=== PATIENT | male | born 1940 | race Caucasian/White ===

== ENCOUNTER → 2022-09-26 14:58 | Outpatient (REF) | payer MEDICARE, SELFPAY ==
--- NOTE | 2022-09-26 15:03 | CA_ITS ---
Transthoracic Echocardiogram Patient (Last, First, Middle): Deni Mcgee J Gender: Male Date of : 1940 Age: 81 Procedure Date: 09/26/2022 Procedure Type: Transthoracic Echocardiogram Location: [facility] Height: 172.72 cm Weight: 77.11 kg BSA: 1.91 m2 Heart Rate: bpm BP: 150 / 90 mmHg Credit Reporting Clerk: TO Referring MD: Gaetano Anderson MD Residential Nurse: Adalberto Willard MD Symptoms: ATRIAL FIBRILLATION Study Quality: Fair ECG Rhythm: Atrial Fibrillation Conclusions: - 1. Low normal LV ejection fraction 45-50% 2. Severe biatrial enlargement 3. Mild aortic and mitral regurgitation 4. 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 Upper limits of normal RV systolic pressure 6. No pericardial effusion Findings Left Ventricle Normal left ventricular cavity size. There is normal left ventricular wall thickness. The left ventricular systolic function is mildly decreased. The visually estimated ejection fraction is between 45-50%. Diastolic function is indeterminate on the basis of available data. Right Ventricle Normal right ventricular cavity size. There is normal right ventricular systolic function. Atria Severe biatrial enlargement. There is no evidence of interatrial shunt. Aortic Valve Normal aortic valve structure and function. There is no aortic valve stenosis. There is mild aortic valve regurgitation. Mitral Valve There is mild anterior and posterior mitral leaflet thickening. There is mild mitral valve regurgitation. There is no mitral valve stenosis. Pulmonic Valve The pulmonic valve is likely normal. There is trace to mild pulmonic valve regurgitation. Tricuspid Valve Normal tricuspid valve structure. There is mild tricuspid valve regurgitation. There is no evidence of pulmonary hypertension. Great Vessels The pulmonary artery was not well visualized. There is mild dilatation of the ascending aorta measuring 3.90 cm. Venous The inferior vena cava is normal in size and collapses greater than 50% with inspiration. Pericardium/Pleural There is no evidence of pericardial effusion. Prior Study Comparison Changes noted compared to prior study dated: 10/24/2021. LV systolic function is reduced. Ascending aorta is mildly dilated. Mild aortic and mild mitral regurgitation is noted. Measurements 2D Linear Measurements IVSd: 1.26 0.6-0.9/0.6-1.0 cm LVIDd: 4.69 3.9-5.3/4.2-5.9 cm LVIDd Index: 2.46 2.4-3.2/2.2-3.1 cm/m2 LVIDs: 3.51 2.0-3.6 cm LVPWd: 0.93 0.7-1.1 cm LA Diam: 5.20 2.7-3.8/3.0-4.0 cm LAIDs Index: 2.72 1.5-2.3 cm/m2 LV Mass: 231.25 67-162/88-224 g LV Mass Index: 121.07 43-95/49-115 g/m2 LVOT Diam: 2.40 3.0+(-)1.3 cm 2D Systolic Function EF 4C: 49.40 >55% EF 2C: 46.10 >55% EF BiP: 48.30 >55% Mitral Valve MV Pk E: 0.64 MV Decel Time: 156.00 E'Lateral: 8.59 E/E' Lat: 7.50 PHT: 46.00 MVA PHT: 4.78 Decel Whiteside: 4.13 Aortic Valve AoV Pk Guicho: 1.10 AoV Pk Grad: 5.00 LVOT LVOT Pk Guicho: 0.57 LVOT Mn Guicho: 0.37 LVOT VTI: 0.11 LVOT Pk Grad: 1.00 LVOT Mn Grad: 1.00 LVOT Diam: 2.40 LVOT Area: 4.52 Diastolic Function MV Pk E: 0.64 E' Laterial: 8.59 E/E' Lat: 7.50 Right Ventricle TAPSE (mm): 18.00 TVS' Guicho: 13.00 Tricuspid Valve TR Pk Guicho: 2.91 TR Pk Grad: 34.00 RA Press: 3.00 RVSP: 37.00 Great Vessels Aorta Sinus of Valsalva: 3.51 2.0-3.[address] Ridge: 3.10 1.7-3.4 cm Ao Asc: 3.90 2.1-3.4 cm Ao Arch: 3.30 Updated in Other Vendor System with Status of Final Adalberto Willard MD electronically signed on 09/27/2022 9:54:44 AM with status of Final
== END ==
LOC: HO.CARD 14:58
PROVIDERS: PCP Family Medicine; Visit Provider Family Medicine
DX: I48.91 Unspecified atrial fibrillation (principal)
CPT/HCPCS: 93306